=== PATIENT | male | born 1990 | race Hispanic/Latino ===

== ENCOUNTER 2018-08-26 22:50 | Emergency (ER) | payer OTHER ==
[~2018-08-26] VITALS: Ht 170.2 cm; Wt 83.2 kg
[2018-08-26] MEDS ORDERED: IBUP80TA PO (22:57)
[2018-08-27] MEDS ORDERED: ROBA500T PO (00:13)
[2018-08-27] MEDS ORDERED: METHOCARBAMOL 1,000 MG/10 ML VIAL (J2800) IM ONE (00:15)
[2018-08-27 00:35] VITALS: BP 121/69
== END 2018-08-27 00:36 | disposition home or self-care (01) ==
LOC: M ED 22:50
DX: M62.830 Muscle spasm of back (principal)
CPT/HCPCS: 96372; 99283; J2800